=== PATIENT | male | born 1955 | race Caucasian/White ===

== ENCOUNTER 2023-05-07 10:11 | Outpatient (CLI) | payer MEDICARE, SELFPAY ==
--- NOTE | 2023-05-07 10:19 | CT_ITS ---
WS: [id number] LDCT LUNG CANCER SCREENING HISTORY: HX OF TOBACCO USE TECHNIQUE: Axial imaging performed from the apices to 1 cm below the costophrenic angles. Coronal and sagittal reformats are submitted with axial MIP series. All CT scans at [facility] use at least one of these dose optimization techniques: automated exposure control; mA and/or kV adjustment per patient size (includes targeted exams where dose is matched to clinical indication); or iterativ e reconstruction. DLP: 91.91 mGy.cm DIvol: Mean CTDIvol: 1.80 (mGy) COMPARISON: None available. Diagnostic quality: Satisfactory Lungs: Mild pulmonary hypertension. Micronodule at the LEFT lung base. No additional nodules or jami s. No endobronchial lesions. Heart: Normal size heart with no pericardial effusion.. Moderate coronary artery calcification. Great est calcification along the LEFT anterior descending coronary artery. Other findings: Small hiatal hernia. No mediastinal or hilar adenopathy. Mild atherosclerosis aorta. LEFT hepatic cyst. Splenic artery calcifications. IMPRESSION: CT/CT lung screening 21954 LUNG-RADS: 2-Benign Appearance or Behavior FOLLOW UP: 12 Month: Continue annual screening with LDCT OTHER FINDINGS (S MODIFIER): None.
== END 2023-05-07 10:12 | disposition home or self-care (01) ==
LOC: RAD 10:14
PROVIDERS: PCP Family Medicine; Visit Provider Family Medicine
DX: Z12.2 Encounter for screening for malignant neoplasm of respiratory organs (principal); Z87.891 Personal history of nicotine dependence
CPT/HCPCS: 71271